=== PATIENT | female | born 1990 | race Caucasian/White ===

== ENCOUNTER 2017-12-22 21:56 | Emergency (ER) | payer OTHER ==
--- NOTE | 2017-12-22 22:18 | EDPHY ---
H & P Stated Complaint: JAW OUT OF LINE,CAN'T OPEN MOUTH,R EAR RINGING/SOFTBALL Time Seen by Provider: 12/22/17 22:10 HPI/ROS: CHIEF COMPLAINT: Mandible pain HISTORY OF PRESENT ILLNESS: The patient is a 27-year-old female who was hit in the left anterior jaw by a softball. Someone had thrown it and it hit her in the drawn. She denies loss of consciousness or headache or confusion. She denies neck pain. She feels like her jaws crooked. BG does not have any loose teeth. She has an abrasion to the left side of her chin but no deep laceration. She has pain when she tries to open her mouth. Severity: Severe Modifying factors: Worse with movement REVIEW OF SYSTEMS: Constitutional: denies: chills, fever, recent illness, recent injury EENTM: See HPI denies: blurred vision, double vision, nose congestion Respiratory: denies: cough, shortness of breath Cardiac: denies: chest pain, irregular heart rate, lightheadedness, palpitations Gastrointestinal/Abdominal: denies: abdominal pain, diarrhea, nausea, vomiting, blood streaked stools Genitourinary: denies: dysuria, frequency, hematuria, pain Musculoskeletal: denies: joint pain, muscle pain Skin: denies: lesions, rash, jaundice, bruising Neurological: denies: headache, numbness, paresthesia, tingling, dizziness, weakness Hematologic/Lymphatic: denies: blood clots, easy bleeding, easy bruising Immunologic/allergic: denies: HIV/AIDS, transplant 10 systems reviewed and negative except as noted EXAM: GENERAL: Well-appearing, well-nourished and in no acute distress. HEAD: Atraumatic, normocephalic. EYES: Pupils equal round and reactive to light, extraocular movements intact, sclera anicteric, conjunctiva are normal. ENT: Minor abrasion to left chin, no obvious swelling or deformity or malalignment. No visible dental injury. She does have trismus. TMs normal, nares patent, Moist mucous membranes. NECK: Normal range of motion, supple without lymphadenopathy or JVD. LUNGS: Breath sounds clear to auscultation bilaterally and equal. No wheezes rales or rhonchi. HEART: Regular rate and rhythm without murmurs, rubs or gallops. ABDOMEN: Soft, nontender, normoactive bowel sounds. No guarding, no rebound. No masses appreciated. BACK: No CVA tenderness, no spinal tenderness, step-offs or deformities EXTREMITIES: Normal range of motion, no pitting or edema. No clubbing or cyanosis. NEUROLOGICAL: Cranial nerves II through XII grossly intact. Normal speech, normal gait. 5/5 strength, normal movement in all extremities, normal sensation , normal reflexes PSYCH: Normal mood, normal affect. SKIN: Warm, dry, normal turgor, no visible rashes or lesions. Source: Patient Exam Limitations: No limitations - Personal History LMP (Females 10-55): 1-7 Days Ago Current Tetanus Diphtheria and Acellular Pertussis (TDAP): Yes - Medical/Surgical History Hx Asthma: No Hx Chronic Respiratory Disease: No Hx Diabetes: No Hx Cardiac Disease: No Hx Renal Disease: No Hx Cirrhosis: No Hx Alcoholism: No Hx HIV/AIDS: No Hx Splenectomy or Spleen Trauma: No Other PMH: BILAT FOOT SURGERY FOR FLAT FEET - Family History Significant Family History: No pertinent family hx - Social History Smoking Status: Never smoked Alcohol Use: Sober Drug Use: None Constitutional: Initial Vital Signs Temperature (C) 37.5 C 12/22/17 22:01 Heart Rate 73 12/22/17 22:01 Respiratory Rate 16 12/22/17 22:01 Blood Pressure 135/91 H 12/22/17 22:01 O2 Sat (%) 100 12/22/17 22:01 O2 Delivery Mode Room Air Allergies/Adverse Reactions: No Known Allergies Allergy (Verified 12/22/17 22:03) Home Medications: Medication Instructions Recorded Hydrocodone/APAP 5/325 [[place] 1 - 2 tab PO Q4H PRN #10 tab 12/22/17 5/325 (RX)] Medical Decision Making ED Course/Re-evaluation: 10:45 p.m. I discussed the case with the Dr. Alexander and then with Dr. Elvis soliman from Neurosurgery. He recommends that we called ENT and does not think there is anything to be done neuro surgically. 10:55 p.m. I discussed the case with Linda from Dr. Greenberg is office. She does not feel that anything is indicated at this time and will follow up with the patient in clinic. Patient and friend are happy with this plan. I advised soft diet until that time. Differential Diagnosis: Partial list of the Differential diagnosis considered include but were not limited to; the mandible fracture, mandibular fossa fracture, dental injury and although unlikely based on the history and physical exam, I also considered head injury, concussion, neck injury. I discussed these differential diagnoses and the plan with the patient as well as the usual and expected course. The patient understands that the diagnosis is provisional and that in medicine we are not always correct and that further workup is often warranted. Usual and customary warnings were given. All of the patient's questions were answered. The patient was instructed to return to the emergency department should the symptoms at all worsen or return, otherwise to followup with the physician as we discussed. - Data Points Medications Given: Discontinued Medications Hydrocodone Bitart/Acetaminophen ([place] 5/325mg Prepack#6) 1 btl TAKEHOME EDNOW ONE Stop: 12/22/17 23:04 Last Admin: 12/22/17 23:06 Dose: 1 btl Departure - Departure Disposition: Home, Routine, Self-Care Clinical Impression: Temporal eminence fracture right Condition: Fair Instructions: Hydrocodone/Acetaminophen (By mouth), Jaw Fracture in Adults (ED) , Soft Diet (ED) Referrals: NONE *PRIMARY CARE P,. [Primary Care Provider] - As per Instructions Brooks Greenberg MD [Medical Doctor] - 2-3 days without fail Prescriptions: Hydrocodone/APAP 5/325 [[place] 5/325 (RX)] 1 - 2 tab PO Q4H PRN #10 tab PRN Reason: Pain, Moderate
[2017-12-22] MEDS ORDERED: HYDROCOD/APAP 5/325 PREPACK#6 BTL TAKEHOME ONE ×2 (23:03)
[2017-12-22 23:15] VITALS: BP 140/67
== END 2017-12-22 23:15 | disposition home or self-care (01) ==
DX: S02.19XA Other fracture of base of skull, initial encounter for closed fracture (principal); W21.07XA Struck by softball, initial encounter; Y93.64 Activity, baseball; Y92.9 Unspecified place or not applicable; Y99.9 Unspecified external cause status